=== PATIENT | male | born 1990 | race Caucasian/White ===

== ENCOUNTER 2016-07-31 19:54 | Emergency (ER) | payer OTHER ==
[2016-07-31 20:01] VITALS: BP 125/87; PULSE 120; TEMP 98.2; BMI 36.5
[2016-07-31] MEDS ORDERED: LIDOCAINE HCL 2% JELLY 10 ML CARTRIDGE ONE (20:25)
--- NOTE | 2016-07-31 20:54 | PDOC ---
[id number]: BUG IN EAR Time Seen by Provider: 07/31/16 20:21 History Source: Patient Exam Limitations: No Limitations - History of Present Illness Initial Comments: 07/31/16 20:54 25 yr male c/o insect in left ear. Pt attempted to remove with tweezers [employer]IST[employer] COMM[employer]ICATION Past History - Past Medical History Allergies/Adverse Reactions: Allergies Allergy/AdvReac Type Severity Reaction Status Date / Time Penicillins Allergy Verified 07/31/16 19:58 Home Medications: Ambulatory Orders Acetaminophen [Tylenol .Regular Strength -] 650 mg PO Q6H PRN #0 tablet Atorvastatin Ca [Lipitor] 10 mg PO HS #0 tablet 10/05/13 Clindamycin [Cleocin -] 300 mg PO TID #30 capsule 10/05/13 Lisinopril [Prinivil] 10 mg PO DAILY #0 tablet 10/05/13 Metformin HCl [Glucophage] 1,000 mg PO BID #0 tablet 10/05/13 Anemia: No Asthma: No Cancer: No Cardiac Disorders: No CVA: No COPD: No CHF: No Dementia: No Diabetes: Yes GI Disorders: No Disorders: No HTN: Yes Hypercholesterolemia: Yes Liver Disease: No Suicide Attempt (Hx): No Seizures: No Thyroid Disease: No - Surgical History Abdominal Surgery: No Appendectomy: No Cardiac Surgery: No Cholecystectomy: No Lung Surgery: No Neurologic Surgery: No Orthopedic Surgery: No - Psycho/Social/Smoking Cessation Hx Suicidal Ideation: No Smoking History: Never smoked Have you smoked in the past 12 months: No Hx Alcohol Use: No Drug/Substance Use Hx: No Substance Use Type: None Hx Substance Use Treatment: No *Physical Exam - Vital Signs Last Vital Signs Temp Pulse Resp BP Pulse Ox 98.2 F 120 H 20 125/87 96 07/31/16 19:58 07/31/16 19:58 07/31/16 19:58 07/31/16 19:58 07/31/16 19:58 - Physical Exam General Appearance: Yes: Nourished, Appropriately Dressed, Other (anxious) HEENT: positive: EOMI, LEONEL, Other (insect left ear ) Respiratory/Chest: positive: Lungs Clear, Normal Breath Sounds Cardiovascular: positive: Regular Rhythm, Regular Rate Extremity: positive: Normal Range of Motion Integumentary: positive: Normal Color, Dry, Warm Procedures - Additional Procedures Progress: 07/31/16 20:55 instilled 1%visocus lidocaine to left ear to kill insect attempted multiple times to remove insect with forceps, irrigated unsuccessfull Medical Decision Making - Medical Decision Making 07/31/16 20:55 cc: insect left ear will instill lidocaine to kill the insect and attempt to remove pt tolerated well after multiple attempts unable to remove insect pt will follow with ENT tomorrow to have insect removed, pt states he has no pain or does not feel insect moving agrees with plan to follow up tomorrow with ENT HR rechecked is 110, pt states he is nervous. 08/04/16 13:43 *DC/Admit/Observation/Transfer Diagnosis at time of Disposition: Foreign body in ear Qualifiers: Encounter type: initial encounter Laterality: left Qualified Code(s): T16.2XXA - Foreign body in left ear, initial encounter - Discharge Dispostion Disposition: HOME Condition at time of disposition: Fair - Referrals Referrals: Mich Childers [Primary Care Provider] - Jt Boswell MD [Staff Physician] - - Patient Instructions Additional Instructions: follow with ENT tomorrow do not stick anything in the ear take motrin for any pain or discomfort
== END 2016-07-31 21:00 | disposition home or self-care (01) ==
LOC: JERFT 19:54
PROC: 09C4XZZ Extirpation of Matter from Left External Auditory Canal, External Approach (ICD-10-PCS; principal; 2016-07-31)
DX: T16.2XXA Foreign body in left ear, initial encounter (principal)
CPT/HCPCS: 99281-25

== ENCOUNTER 2019-04-09 06:24 | Emergency (ER) | payer OTHER ==
[2019-04-09 06:31] VITALS: BMI 35.3
[2019-04-09] MEDS ORDERED: SODIUM CHLORIDE 0.9% 500 ML INFUS.BAG IV ONE ×2 (07:09→09:28)
[2019-04-09] MEDS ORDERED: ONDANSETRON 4 MG/2 ML VIAL IVPB ONE (07:10)
[2019-04-09] MEDS ORDERED: ACETAMINOPHEN 1000 MG/100 ML VIAL (NON FORMULARY) IVPB ONE (07:10)
--- NOTE | 2019-04-09 07:18 | PDOC ---
History of Present Illness - General Chief Complaint: Pain Stated Complaint: ABD PAIN Time Seen by Provider: 04/09/19 07:00 History Source: Patient Exam Limitations: No Limitations - History of Present Illness Initial Comments: 04/09/19 07:15 William Cruz is a 28yM w PMHx DM, HTN, HLD, spinal stenosis presenting w abdominal pain. Has epigastric, LLQ pain for the last 4 days. Associated vomiting, unable to keep anything down. One episode of diarrhea yesterday. Measured glucose 2d ago in 200s. Not on insulin. Denies alcohol, marijuana use. Denies fever, cough, SOB, chest pain, hematuria/pyuria, or constipation. 04/09/19 07:56 Past History - Past Medical History Allergies/Adverse Reactions: Allergies Allergy/AdvReac Type Severity Reaction Status Date / Time Penicillins Allergy Verified 04/09/19 06:29 Home Medications: Ambulatory Orders Lisinopril [Prinivil] 10 mg PO DAILY #0 tablet 10/05/13 Metformin HCl [Glucophage] 1,000 mg PO BID #0 tablet 10/05/13 Buspirone HCl [Buspar -] 10 mg PO BID PRN 06/24/18 Febuxostat [Uloric -] 40 mg PO DAILY 06/24/18 Glipizide Xl [Glucotrol Xl -] 2.5 mg PO DAILY 06/24/18 Nebivolol [Bystolic -] 10 mg PO DAILY 06/24/18 Sertraline HCl [Zoloft -] 25 mg PO DAILY 06/24/18 Insulin Glargine,Hum.rec.anlog [Basaglar Kwikpen U-100] 70 unit SQ HS 09/29/18 Acetaminophen [Pain Relief] 650 mg PO TID PRN #90 tablet.er 12/20/18 Cyclobenzaprine HCl [Flexeril -] 10 mg PO TID PRN #90 tablet 12/20/18 Ergocalciferol (Vitamin D2) [Vitamin D2] 50,000 unit PO Q7D 12/20/18 Linagliptin [Tradjenta] 5 mg PO DAILY 12/20/18 Anemia: No Asthma: No Cancer: No Cardiac Disorders: No CVA: No COPD: No CHF: No Dementia: No Diabetes: Yes (on meds) GI Disorders: No Disorders: Yes (proteinuria) HTN: Yes (on meds) Hypercholesterolemia: Yes Liver Disease: Yes (fatty liver) Seizures: Yes (as child - 'blanked out and shook' - not in years) Thyroid Disease: No - Surgical History Abdominal Surgery: No Appendectomy: No Cardiac Surgery: No Cholecystectomy: No Lung Surgery: No Neurologic Surgery: No Orthopedic Surgery: No - Psycho Social/Smoking Cessation Hx Smoking History: Never smoked Have you smoked in the past 12 months: No Hx Alcohol Use: No Drug/Substance Use Hx: No Substance Use Type: None Hx Substance Use Treatment: No Review of Systems - Review of Systems Constitutional: No: Chills, Fever HEENTM: No: Eye Pain, Nose Pain, Throat Pain, Mouth Pain Respiratory: No: Cough, Shortness of Breath Cardiac (ROS): No: Chest Pain, Edema, Palpitations, Syncope ABD/GI: Yes: Diarrhea, Nausea, Vomiting. No: Abdominal Distended, Constipated : No: Burning, Dysuria, Discharge, Frequency, Flank Pain, Hematuria Musculoskeletal: Yes: Back Pain (chronic low back). No: Joint Pain, Joint Swelling, Muscle Pain, Muscle Weakness Integumentary: No: Bruising, Dryness, Erythema Neurological: No: Headache, Numbness, Seizure, Tingling, Tremors Psychiatric: No: Anxiety, Depression, Stressors Endocrine: No: Excessive Sweating, Flushing, Intolerance to Cold, Intolerance to Heat Hematologic/Lymphatic: No: Anemia, Blood Clots *Physical Exam - Vital Signs Last Vital Signs Temp Pulse Resp BP Pulse Ox 98.2 F 107 H 20 142/92 96 04/09/19 06:04/09/19 06:04/09/19 06:04/09/19 06:04/09/19 06:27 - Physical Exam General Appearance: Yes: Nourished, Appropriately Dressed, Mild Distress HEENT: positive: EOMI, LEONEL, Normal Voice, Hearing Grossly Normal. negative: Scleral Icterus (R), Scleral Icterus (L), Nasal Congestion, Rhinorrhea Respiratory/Chest: positive: Lungs Clear, Normal Breath Sounds. negative: Chest Tender, Respiratory Distress, Crackles, Rales, Rhonchi, Stridor, Wheezing Cardiovascular: positive: Regular Rhythm, S1, S2, Tachycardia. negative: Edema , Murmur Gastrointestinal/Abdominal: positive: Normal Bowel Sounds, Tender (mildly tender epigastric, LLQ), Flat, Soft. negative: Guarding, Rebound, Mass Male Genitalia: positive: normal genitalia. negative: discharge, testicular tenderness, testicular mass, epididymus tender, hernia Musculoskeletal: negative: CVA Tenderness (R), CVA Tenderness (L) Extremity: positive: Delayed Capillary Refill. negative: Swelling Integumentary: positive: Dry Neurologic: positive: Fully Oriented, Alert, Normal Mood/Affect, Normal Response , Responsive. negative: Numbness, Confused, Disoriented ED Treatment Course - LABORATORY CBC & Chemistry Diagram: 04/09/19 07:45 04/09/19 07:45 Medical Decision Making - Medical Decision Making 04/09/19 07:16 CBC CMP lipase acetone sOsmo POCglucose UA Ucx VBG 2L NS zofran tylenol 07:31 - BG 278. 09:00 - BG 230 after 1L NS WBC 14.3, Hgb 17 - contraction alkalosis, CMP normal, trop neg UA trace ketones, glucose, no UTI CT AB shows no acute pathology, fatty liver William Cruz is a 28yM w PMHx DM, spinal stenosis presenting w abdominal pain and vomiting likely d/t gastroenteritis. No diverticulitis, acute pathology on CT AB. Not DKA w BG 278, repeat 230 w fluids. Pain/vomiting relieved w 2L NS, zofran, tylenol. Pt tolerating PO fluids. D/c home Discharge - Discharge Information Problems reviewed: Yes Clinical Impression/Diagnosis: Gastroenteritis Condition: Improved Disposition: HOME - Admission No - Follow up/Referral Referrals: Eveline Singh MD [Primary Care Provider] - - Patient Discharge Instructions Patient Printed Discharge Instructions: DI for Viral Gastroenteritis -- Adult Additional Instructions: You were seen for abdominal pain and vomiting. Your labs and imaging did not show anything concerning. You were given medication and fluids for your pain and vomiting. Drink lots of fluids. You can take tylenol or ibuprofen if you continue to have abdominal pain. Please follow up with your primary care doctor regarding this visit. Come back to the ED if you continue to vomit, worsening abdominal pain, or lose consciousness. - Post Discharge Activity
[2019-04-09] MEDS ORDERED: ACETAMINOPHEN INJECTION 100 ML IVPB ONE (07:30)
[2019-04-09] MEDS ORDERED: ONDANSETRON 4 MG/2 ML VIAL ONE (07:30)
[2019-04-09 08:12] LABS: VENOUS PH 7.43 (7.31-7.41); VENOUS PO2 60.2 mmHg (28-48)
[2019-04-09 08:35] LABS: BASO % 0.1 % (0-2.0); EOS % 1.3 % (0-4.5); HEMATOCRIT 49.7 % (35.4-49); LYMPH % 21.1 % (8-40); MCH 28.3 pg (25.7-33.7); MCHC 34.2 g/dl (32.0-35.9); MEAN CELL VOLUME 82.8 fl (80-96); MEAN PLT VOLUME 7.9 fl (7.5-11.1); MONO % 10.5 % (3.8-10.2); PLATELET COUNT 289 K/MM3 (134-434); RBC 6.01 M/mm3 (4.00-5.60); RDW 14.5 % (11.9-15.9); WHITE BLOOD COUNT 14.3 K/mm3 (4.0-10.0)
[2019-04-09 09:05] LABS: ALK PHOS 80 U/L (45-117); ANION GAP 10 MMOL/L (8-16); BILIRUBIN,TOTAL 1.2 mg/dL (0.2-1); CALCIUM 9.3 mg/dL (8.5-10.1); CHLORIDE 99 mmol/L (98-107); CO2 28 mmol/L (21-32); GLUCOSE,RANDOM 264 mg/dL (74-106); POTASSIUM 4.2 mmol/L (3.5-5.1); SGOT/AST 19 U/L (15-37); SGPT/ALT 34 U/L (13-61); SODIUM 137 mmol/L (136-145); TOT PROT 7.7 g/dl (6.4-8.2)
[2019-04-09 09:30] LABS: OSMOLALITY,SERUM 295 mosm/kg (278-305)
[2019-04-09 10:06] LABS: URINE APPEARANCE CLEAR; URINE BILIRUBIN NEGATIVE (NEGATIVE); URINE COLOR YELLOW; URINE GLUCOSE (UA) 2+ (NEGATIVE); URINE KETONE TRACE (NEGATIVE); URINE LEUK ESTERASE NEGATIVE (NEGATIVE); URINE NITRITE NEGATIVE (NEGATIVE); URINE PROTEIN 1+ (NEGATIVE)
--- NOTE | 2019-04-09 10:29 | PDOC ---
Attending Attestation - Resident Resident Name: Henry Omer - ED Attending Attestation I have performed the following: I have examined & evaluated the patient, The case was reviewed & discussed with the resident, I agree w/resident's findings & plan, Exceptions are as noted - HPI HPI: 04/09/19 10:25 28 yo male h/o htn hld dm obesity spinal stenosis here wtih c/o epigastric and lower abd pain. pt states pain started yesterday. has had several episodes of n/ v over night . one loose stool. no sick contacts. no fever, no travel. no recent abx. pt states pain is constant. no testicular pain. no mod factors. pain moderate. no prior abd surgery. - Physicial Exam PE: 04/09/19 10:27 awake alert lungs clear bilat heart rrrn omrg abd soft obese llq ttp. no rebound no guarding. ext wwp no edema. nuero alert oriented x 3. - Medical Decision Making 04/09/19 10:29 28 yo male n/v /d llq ttp on exam. differential renal colic, gastroenteritis, colitis, diveritculitis, dka. plan labs ua iv hydration antiemetics. ct a/p
[2019-04-09 10:45] LABS: ACETONE SERUM NEGATIVE (NEGATIVE)
[2019-04-09 10:53] VITALS: BP 105/66; PULSE 84; TEMP 97.6
[2019-04-09 15:36] LABS: EPI CELLS 0.5 /HPF (0-5/HPF); HYALINE CASTS 2.99 /lpf (0-8); URINE BACTERIA 4.6 /hpf (NEGATIVE); URINE RBC 1.7 /hpf (0-4); URINE WBC 0.6 /hpf (0-5)
== END 2019-04-09 10:53 | disposition home or self-care (01) ==
LOC: JER 06:24
PROC: 3E033NZ Introduction of Analgesics, Hypnotics, Sedatives into Peripheral Vein, Percutaneous Approach (ICD-10-PCS; principal; 2019-04-09)
PROC: 3E033GC Introduction of Other Therapeutic Substance into Peripheral Vein, Percutaneous Approach (ICD-10-PCS; 2019-04-09)
DX: K52.9 Noninfective gastroenteritis and colitis, unspecified (principal); I10 Essential (primary) hypertension; E11.9 Type 2 diabetes mellitus without complications; Z79.84 Long term (current) use of oral hypoglycemic drugs; E78.00 Pure hypercholesterolemia, unspecified; R80.9 Proteinuria, unspecified; K76.0 Fatty (change of) liver, not elsewhere classified; Z88.0 Allergy status to penicillin
CPT/HCPCS: 36415; 74177-TC; 80053; 81003; 82009; 82803; 82962; 83690; 83930; 84484; 85025; 87086; 96374; 96375; 99283-25; J0131

== ENCOUNTER 2019-07-16 02:13 | Emergency (ER) | payer OTHER ==
[2019-07-16 02:46] VITALS: BMI 35.6
[2019-07-16] MEDS ORDERED: ONDANSETRON 4 MG/2 ML VIAL IVPUSH ONE (03:41)
[2019-07-16] MEDS ORDERED: SODIUM CHLORIDE 1,000 ML IV STA (03:41)
[2019-07-16] MEDS ORDERED: ONDANSETRON 4 MG/2 ML VIAL ONE (04:07)
--- NOTE | 2019-07-16 04:18 | PDOC ---
History of Present Illness - General Chief Complaint: Nausea/Vomiting Stated Complaint: VOMITING BLOOD Time Seen by Provider: 07/16/19 03:29 History Source: Patient Exam Limitations: No Limitations - History of Present Illness Initial Comments: 07/16/19 04:09 Mr. Cruz is a 28 yo M w PMHx DM, HTN, HLD, spinal stenosis who presents to the ER with a complaint of nausea, vomiting Pt states that he was in his usual state of health (last meal was at noon) He went to work this evening and began having nausea and vomiting He vomited 5 times - non bilious. One time he vomited, he noted blood streaking No abdominal pain or tenderness No fevers or chills Currently pt feels better Pt states he has had "Stomach issues" for the past few months Was seen in the ER in Sept - fatty infiltration of the liver, no other pathology found Pt seen by PMD and sent for US on Jul 14 as an outpatient, demonstrated no gallstones, no GB wall thickening, no pericholecystic fluid, fatty infiltration and splenomegayly Denies recent travel Denies ill contacts Denies fever, cough, SOB, chest pain, hematuria/pyuria, or constipation. PMH: DM, HTN, HLD, spinal stenosis PSH: denies Meds: please see MAR ALL: PCN Social: Denies alcohol, marijuana use. ROS: GENERAL/CONSTITUTIONAL: No: fever, chills, weakness, loss of appetite. HEAD, EYES, EARS, NOSE AND THROAT: No: sore throat, throat swelling. CARDIOVASCULAR: No: chest pain, lightheadedness, palpitations, syncope RESPIRATORY: No: cough, shortness of breath, wheezing GASTROINTESTINAL: Yes: nausea, vomiting, No: diarrhea, abdominal pain. GENITOURINARY: No: dysuria, hematuria, frequency, urgency, flank pain. MUSCULOSKELETAL: No: back pain, neck pain, joint pain, muscle swelling or pain SKIN: No: lesions, pallor, rash or easy bruising. NEUROLOGIC: No: headache, vertigo, paresthesias, weakness ENDOCRINE: No: unexplained weight gain or loss HEMATOLOGIC/LYMPHATIC: No: anemia, easy bleeding, swelling nodes. PE: GENERAL: The patient is in no acute distress. HEAD: Normal with no signs of trauma. EYES: PERRLA, EOMI, sclera anicteric, conjunctiva clear. ENT: Ears normal, nares patent, oropharynx clear without exudates. Dry mucous membranes. NECK: Normal range of motion, supple LUNGS: Breath sounds equal, clear to auscultation bilaterally. No wheezes, and no crackles. HEART:Regular rate and rhythm, normal S1 and S2 without murmur, rub or gallop. ABDOMEN: Soft, nontender, No guarding, no rebound. EXTREMITIES: Normal range of motion, no edema. NEUROLOGICAL: Cranial nerves II through XII grossly intact. Normal speech. No focal neurological deficits. MUSCULOSKELETAL: Back non-tender to palpation, no CVA tenderness SKIN: Warm, Dry, normal turgor, no rashes or lesions noted. Past History - Past Medical History Allergies/Adverse Reactions: Allergies Allergy/AdvReac Type Severity Reaction Status Date / Time Penicillins Allergy Verified 04/09/19 06:29 Home Medications: Ambulatory Orders Lisinopril [Prinivil] 10 mg PO DAILY #0 tablet 10/05/13 Metformin HCl [Glucophage] 1,000 mg PO BID #0 tablet 10/05/13 Buspirone HCl [Buspar -] 10 mg PO BID PRN 06/24/18 Glipizide Xl [Glucotrol Xl -] 2.5 mg PO DAILY 06/24/18 Nebivolol [Bystolic -] 10 mg PO DAILY 06/24/18 Sertraline HCl [Zoloft -] 25 mg PO DAILY 06/24/18 Insulin Glargine,Hum.rec.anlog [Basaglar Kwikpen U-100] 70 unit SQ HS 09/29/18 Linagliptin [Tradjenta] 5 mg PO DAILY 12/20/18 Acetaminophen [Pain Relief] 650 mg PO TID PRN #90 tablet.er 06/27/19 Cyclobenzaprine HCl 10 mg PO BID PRN #60 tablet 06/27/19 Ergocalciferol (Vitamin D2) [Vitamin D2] 50,000 unit PO Q7D #4 capsule 06/27/19 Anemia: No Asthma: No Cancer: No Cardiac Disorders: No CVA: No COPD: No CHF: No Dementia: No Diabetes: Yes (on meds) GI Disorders: No Disorders: Yes (proteinuria) HTN: Yes (on meds) Hypercholesterolemia: Yes Liver Disease: Yes (fatty liver) Seizures: Yes (as child - 'blanked out and shook' - not in years) Thyroid Disease: No - Surgical History Abdominal Surgery: No Appendectomy: No Cardiac Surgery: No Cholecystectomy: No Lung Surgery: No Neurologic Surgery: No Orthopedic Surgery: No - Psycho Social/Smoking Cessation Hx Smoking History: Never smoked Have you smoked in the past 12 months: No Hx Alcohol Use: No Drug/Substance Use Hx: No Substance Use Type: None Hx Substance Use Treatment: No *Physical Exam - Vital Signs Last Vital Signs Temp Pulse Resp BP Pulse Ox 92 H 18 136/78 99 07/16/19 02:44 07/16/19 02:44 07/16/19 02:44 07/16/19 02:44 ED Treatment Course - LABORATORY CBC & Chemistry Diagram: 07/16/19 04:15 07/16/19 04:15 Medical Decision Making - Medical Decision Making 07/16/19 04:17 28 yo M presenting to the ER with a complaint of nausea and vomiting no abd pain DD: Gastritis, early gastroenteritis, gastroparesis, biliary colic? Will do: Labs IVF Zofran Re Assess Pt had CT in Sept and 2 days ago (no lower abd tenderness) 07/16/19 05:39 Laboratory Tests 07/16/19 07/16/19 07/16/19 04:15 04:15 04:15 WBC 9.4 Hgb 15.6 Hct 46.6 Plt Count 247 Neutrophils % 57.8 Lymphocytes % 29.8 D BUN 11.5 Creatinine 0.9 Total Amylase 43 Lipase 07/16/19 04:15 WBC Hgb Hct Plt Count Neutrophils % Lymphocytes % BUN Creatinine Total Amylase Lipase 182 Pt states he feels better Will discharge to home with Zofran prn Clinical impression: gastritis, initial presentation Discharge - Discharge Information Problems reviewed: Yes Clinical Impression/Diagnosis: Gastritis Qualifiers: Gastritis type: unspecified gastritis Chronicity: acute Gastritis bleeding: without bleeding Qualified Code(s): K29.00 - Acute gastritis without bleeding Vomiting Qualifiers: Vomiting type: unspecified Vomiting Intractability: non-intractable Nausea presence: with nausea Qualified Code(s): R11.2 - Nausea with vomiting, unspecified Condition: Stable Disposition: HOME - Admission No - Follow up/Referral Referrals: Boris Mireles MD [Primary Care Provider] - - Patient Discharge Instructions Patient Printed Discharge Instructions: DI for Vomiting -- Adult, DI for Nausea -- Adult Additional Instructions: Mr. Cruz Thank you for coming in to the ER tonletty Please review all your studies Return to the emergency department immediately with ANY new, persistent or worsening symptoms. Continue any medications as previously prescribed by your physician. I have ordered you zofan for vomiting You should follow up with your primary doctor as soon as possible regarding today's emergency department visit. Please make sure your doctor reviews the results of your emergency evaluation. Thank you for coming to the Emergency Department today for your care. It was a pleasure to see you today. Please note that your evaluation is INCOMPLETE until you follow-up with your doctor. - Post Discharge Activity Work/Back to School Note: Back to Work
[2019-07-16 04:25] LABS: BASO % 0.6 % (0-2.0); EOS % 5.5 % (0-4.5); HEMATOCRIT 46.6 % (35.4-49); HEMOGLOBIN 15.6 GM/dL (11.7-16.9); LYMPH % 29.8 % (8-40); MCH 28.6 pg (25.7-33.7); MCHC 33.5 g/dl (32.0-35.9); MEAN CELL VOLUME 85.5 fl (80-96); MEAN PLT VOLUME 7.2 fl (7.5-11.1); MONO % 6.3 % (3.8-10.2); NEUT % 57.8 % (42.8-82.8); PLATELET COUNT 247 K/MM3 (134-434); RBC 5.45 M/mm3 (4.00-5.60); RDW 13.8 % (11.9-15.9); WHITE BLOOD COUNT 9.4 K/mm3 (4.0-10.0)
[2019-07-16 05:11] LABS: ALBUMIN 3.7 g/dl (3.4-5.0); BILIRUBIN,TOTAL 0.5 mg/dL (0.2-1); BLOOD UREA NITROGEN 11.5 mg/dL (7-18); CALCIUM 9.1 mg/dL (8.5-10.1); CREATININE 0.9 mg/dL (0.55-1.3); POTASSIUM 4.1 mmol/L (3.5-5.1); TOT PROT 7.5 g/dl (6.4-8.2)
[2019-07-16 05:51] VITALS: BP 127/77; PULSE 93; TEMP 98.3
== END 2019-07-16 05:57 | disposition home or self-care (01) ==
LOC: JER 02:13
PROC: 3E033GC Introduction of Other Therapeutic Substance into Peripheral Vein, Percutaneous Approach (ICD-10-PCS; principal; 2019-07-16)
DX: K29.00 Acute gastritis without bleeding (principal); I10 Essential (primary) hypertension; E78.00 Pure hypercholesterolemia, unspecified; E11.9 Type 2 diabetes mellitus without complications; Z79.4 Long term (current) use of insulin; K76.0 Fatty (change of) liver, not elsewhere classified; Z88.0 Allergy status to penicillin
CPT/HCPCS: 36415; 80053; 82150; 83690; 85025; 96374; 99282-25; J7030

== ENCOUNTER 2021-09-15 10:17 | Emergency (ER) | payer OTHER ==
[2021-09-15 10:22] VITALS: TEMP 98; BMI 34.9
[2021-09-15] MEDS ORDERED: methylPREDNISolone NA SUCC 125 MG/2 ML VIAL IVPUSH ONE (10:51)
[2021-09-15] MEDS ORDERED: methylPREDNISolone NA SUCC 125 MG/2 ML VIAL ONE (10:57)
[2021-09-15 11:21] LABS: BASO % 0.4 % (0-2.0); EOS % 1.4 % (0-4.5); HEMATOCRIT 39.5 % (35.4-49); HEMOGLOBIN 13.7 GM/dL (11.7-16.9); LYMPH % 15.3 % (8-40); MCH 28.9 pg (25.7-33.7); MCHC 34.6 g/dl (32.0-35.9); MEAN CELL VOLUME 83.5 fl (80-96); MEAN PLT VOLUME 6.9 fl (7.5-11.1); MONO % 12.7 % (3.8-10.2); NEUT % 70.2 % (42.8-82.8); PLATELET COUNT 250 10^3/uL (134-434); RBC 4.73 M/mm3 (4.00-5.60); RDW 13.8 % (11.9-15.9)
[2021-09-15 11:29] LABS: ALBUMIN 3.6 g/dl (3.4-5.0); CALCIUM 9.2 mg/dL (8.5-10.1)
[2021-09-15 11:30] LABS: BLOOD UREA NITROGEN 15.3 mg/dL (7-18); INR 1.1 (0.83-1.09); PROTHROMBIN TIME (PATIENT) 12.7 SEC (9.7-13.0)
[2021-09-15 11:33] LABS: ACTIVATED PTT 30.8 SECONDS (25.2-36.5)
[2021-09-15 11:34] LABS: BILIRUBIN,TOTAL 0.8 mg/dL (0.2-1); TOT PROT 7.8 g/dl (6.4-8.2)
[2021-09-15] MEDS ORDERED: CLINDAMYCIN HCL 150 MG CAPSULE (FP) PO ONE (13:03)
[2021-09-15] MEDS ORDERED: CLINDAMYCIN HCL 150 MG CAPSULE (FP) ONE (13:12)
[2021-09-15] MEDS ORDERED: CLINDAMYCIN 600MG PREMIX IVPB 600 MG/50 ML BAG IVPB ONE ×2 (13:15→13:23)
[2021-09-15 13:22] VITALS: BP 120/77; PULSE 90
== END 2021-09-15 13:40 | disposition short-term general hospital (02) ==
LOC: JER 10:17
PROC: 3E033GC Introduction of Other Therapeutic Substance into Peripheral Vein, Percutaneous Approach (ICD-10-PCS; principal; 2021-09-15)
DX: L02.01 Cutaneous abscess of face (principal); L03.211 Cellulitis of face
CPT/HCPCS: 36415; 70487-TC; 70491-TC; 71045-TC-FY; 80053; 83735; 85025; 85610; 85730; 86850; 86900; 86901; 93005; 93010; 96365; 96375; 99285-25; Q9967

== ENCOUNTER 2023-08-22 19:05 | Inpatient (IN) | payer OTHER ==
[2023-08-22] MEDS ORDERED: FAMOTIDINE 20 MG/50 ML IVPB 20 MG/50 ML MG IVPB ONE (20:28)
[2023-08-22] MEDS ORDERED: MAG HYDROX/AL HYDROX/SIMETH 30 ML UNIT-DOSE CUP ONE (20:28)
[2023-08-22] MEDS ORDERED: METOCLOPRAMIDE HCL INJECTION 10 MG/2 ML VIAL ONE (20:28)
[2023-08-22] MEDS ORDERED: ACETAMINOPHEN INJECTION 100 ML IVPB ONE (20:28)
[2023-08-22 20:41] LABS: BASO % 0.3 % (0-2.0); HEMATOCRIT 47.2 % (35.4-49); LYMPH % 21.4 % (8-40); MCH 28.9 pg (25.7-33.7); MCHC 33.8 g/dl (32.0-35.9); MEAN CELL VOLUME 85.3 fl (80-96); MONO % 6.4 % (3.8-10.2); NEUT % 70.9 % (42.8-82.8); PLATELET COUNT 372 10^3/uL (134-434); RBC 5.53 M/mm3 (4.00-5.60); RDW 14.5 % (11.9-15.9); WHITE BLOOD COUNT 12.2 K/mm3 (4.0-10.0)
[2023-08-22] MEDS: LACTATED RINGERS SOLUTION 1000 ML INFUS.BAG IV ONE ×2 (20:55→22:49)
[2023-08-22] MEDS: FAMOTIDINE 20 MG/50 ML IVPB 20 MG/50 ML MG IVPB ONE (20:56)
[2023-08-22] MEDS: ACETAMINOPHEN 1000 MG/100 ML BAG IVPB ONE (20:56)
[2023-08-22] MEDS: METOCLOPRAMIDE HCL INJECTION 10 MG/2 ML VIAL IVPUSH ONE (20:56)
[2023-08-22] MEDS: MAG HYDROX/AL HYDROX/SIMETH 30 ML UNIT-DOSE CUP PO ONE (20:56)
[2023-08-22 21:05] LABS: CHLORIDE 98 mmol/L (98-107); SODIUM 133 mmol/L (136-145)
[2023-08-22 21:07] LABS: ALBUMIN 4.5 g/dl (3.4-5.0); CALCIUM 9.8 mg/dL (8.5-10.1)
[2023-08-22 21:08] LABS: BLOOD UREA NITROGEN 28.3 mg/dL (7-18); CO2 25 mmol/L (21-32); GLUCOSE,RANDOM 263 mg/dL (74-106); MAGNESIUM 1.5 mg/dL (1.8-2.4)
[2023-08-22 21:10] LABS: CREATININE 1.8 mg/dL (0.55-1.3)
[2023-08-22 21:11] LABS: SGOT/AST 67 U/L (15-37); SGPT/ALT 63 U/L (13-61)
[2023-08-22 21:12] LABS: BILIRUBIN,TOTAL 0.8 mg/dL (0.2-1); TOT PROT 8.9 g/dl (6.4-8.2)
[2023-08-22 21:14] LABS: ALK PHOS 68 U/L (45-117)
[2023-08-22 21:38] LABS: ANION GAP 11 mmol/L (4-13); POTASSIUM 6.7 mmol/L (3.5-5.1)
[2023-08-22] MEDS: metroNIDAZOLE 250 MG TABLET PO ONE (21:59)
[2023-08-22] MEDS ORDERED: MAGNESIUM SULFATE IN WATER 2 GM/50 ML IVPB IVPB ONE (22:32)
[2023-08-22] MEDS: MAGNESIUM SULFATE IN WATER 2 GM/50 ML IVPB IVPB ONE (22:45)
[2023-08-22 23:07] LABS: CHLORIDE 100 mmol/L (98-107); SODIUM 134 mmol/L (136-145)
[2023-08-22 23:09] LABS: CALCIUM 9.2 mg/dL (8.5-10.1)
[2023-08-22 23:10] LABS: BLOOD UREA NITROGEN 26.4 mg/dL (7-18); CO2 26 mmol/L (21-32); GLUCOSE,RANDOM 260 mg/dL (74-106)
[2023-08-22 23:13] LABS: ANION GAP 8 mmol/L (4-13); POTASSIUM 6.1 mmol/L (3.5-5.1)
[2023-08-22] MEDS: SODIUM CHLORIDE 1,000 ML IV STA (23:28)
[2023-08-22] MEDS: SODIUM CHLORIDE 1,000 ML IV SCH (23:29)
[2023-08-22] MEDS ORDERED: INSULIN REGULAR HUMAN 100 UNITS/ML *VIAL IVPUSH ONE (23:58)
[2023-08-23] MEDS: INSULIN REGULAR HUMAN 100 UNITS/ML *VIAL IVPUSH ONE (00:40)
[2023-08-23] MEDS: SODIUM ZIRCONIUM CYCLOSILICATE (LOKELMA) 5 GM PACKET PO SCH (00:40)
[2023-08-23] MEDS ORDERED: SODIUM ZIRCONIUM CYCLOSILICATE (LOKELMA) 5 GM PACKET ONE (00:41)
[2023-08-23 00:52] LABS: BASO % 0.4 % (0-2.0); EOS % 0.3 % (0-4.5); HEMATOCRIT 41.7 % (35.4-49); LYMPH % 18.6 % (8-40); MCH 28.8 pg (25.7-33.7); MCHC 33.6 g/dl (32.0-35.9); MEAN CELL VOLUME 85.8 fl (80-96); MEAN PLT VOLUME 6.8 fl (7.5-11.1); MONO % 5.1 % (3.8-10.2); NEUT % 75.6 % (42.8-82.8); PLATELET COUNT 307 10^3/uL (134-434); RBC 4.86 M/mm3 (4.00-5.60); RDW 14.3 % (11.9-15.9); WHITE BLOOD COUNT 12.5 K/mm3 (4.0-10.0)
[2023-08-23 01:13] LABS: POTASSIUM 5.3 mmol/L (3.5-5.1)
[2023-08-23 01:15] LABS: ALBUMIN 3.8 g/dl (3.4-5.0); BLOOD UREA NITROGEN 27.5 mg/dL (7-18); CALCIUM 9.5 mg/dL (8.5-10.1); MAGNESIUM 2.3 mg/dL (1.8-2.4)
[2023-08-23 01:18] LABS: CREATININE 1.8 mg/dL (0.55-1.3)
[2023-08-23 01:19] LABS: PHOSPHOROUS 3.1 mg/dL (2.5-4.9)
[2023-08-23 01:20] LABS: BILIRUBIN,TOTAL 0.6 mg/dL (0.2-1); TOT PROT 7.5 g/dl (6.4-8.2)
[2023-08-23 03:32] VITALS: BMI 37.8
[2023-08-23] MEDS: HEPARIN NA (PORCINE) 5,000 UNITS/ML 1ML VIAL SQ SCH (05:20)
[2023-08-23] MEDS: INSULIN ASPART SLIDING SCALE (NOVOLOG) 1 VIAL SQ SCH (06:38)
[2023-08-23 09:11] LABS: BASO % 0.4 % (0-2.0); EOS % 1.4 % (0-4.5); HEMATOCRIT 39.5 % (35.4-49); HEMOGLOBIN 13.3 GM/dL (11.7-16.9); LYMPH % 45.8 % (8-40); MCH 28.9 pg (25.7-33.7); MCHC 33.6 g/dl (32.0-35.9); MEAN CELL VOLUME 86.1 fl (80-96); MONO % 8.4 % (3.8-10.2); PLATELET COUNT 267 10^3/uL (134-434); RBC 4.59 M/mm3 (4.00-5.60); RDW 14.2 % (11.9-15.9); WHITE BLOOD COUNT 9.2 K/mm3 (4.0-10.0)
[2023-08-23 09:32] LABS: POTASSIUM 4.5 mmol/L (3.5-5.1)
[2023-08-23 09:35] LABS: ALBUMIN 3.8 g/dl (3.4-5.0); BLOOD UREA NITROGEN 24.8 mg/dL (7-18)
[2023-08-23 09:38] LABS: CREATININE 1.4 mg/dL (0.55-1.3)
[2023-08-23 09:40] LABS: BILIRUBIN,TOTAL 0.7 mg/dL (0.2-1); TOT PROT 7.1 g/dl (6.4-8.2)
[2023-08-23] MEDS: SERTRALINE HCL 25 MG TABLET (FP) PO SCH (10:10)
[2023-08-23] MEDS: busPIRone HCL 10 MG TABLET (FP) PO PRN (10:10)
[2023-08-23] MEDS: PANTOPRAZOLE SODIUM 40 MG VIAL IVPUSH SCH (10:10)
[2023-08-23] MEDS: NEBIVOLOL 10 MG TABLET (FP) PO SCH (10:10)
[2023-08-23] MEDS ORDERED: CYCLOBENZAPRINE HCL 10 MG TABLET (FP) PO PRN (10:25)
[2023-08-23 20:32] VITALS: RESP 18
[2023-08-23] MEDS: INSULIN (LEVEMIR) 100 UNITS/ML UNITS SQ SCH (22:10)
[2023-08-24 08:57] VITALS: BP 137/82; PULSE 93; TEMP 97.8
[2023-08-24 12:39] LABS: HEMATOCRIT 40.4 % (35.4-49); HEMOGLOBIN 13.9 GM/dL (11.7-16.9); MCH 29.2 pg (25.7-33.7); MCHC 34.4 g/dl (32.0-35.9); MEAN CELL VOLUME 84.9 fl (80-96); MEAN PLT VOLUME 6.8 fl (7.5-11.1); PLATELET COUNT 265 10^3/uL (134-434); RBC 4.76 M/mm3 (4.00-5.60); RDW 14.2 % (11.9-15.9); WHITE BLOOD COUNT 6.5 K/mm3 (4.0-10.0)
[2023-08-24 13:01] LABS: POTASSIUM 4.8 mmol/L (3.5-5.1)
[2023-08-24 13:02] LABS: CALCIUM 9.1 mg/dL (8.5-10.1)
[2023-08-24 13:03] LABS: BLOOD UREA NITROGEN 15.9 mg/dL (7-18)
[2023-08-24 13:06] LABS: CREATININE 1.2 mg/dL (0.55-1.3)
== END 2023-08-24 13:46 | disposition home or self-care (01) | DRG 469 ==
LOC: JER 19:05 → JERBED 21:28 → J6S 08-23 01:53
PROVIDERS: ADMIT Internal Medicine; ATTEND Internal Medicine
DX: N17.9 Acute kidney failure, unspecified (principal); E11.43 Type 2 diabetes mellitus with diabetic autonomic (poly)neuropathy; E11.65 Type 2 diabetes mellitus with hyperglycemia; E87.5 Hyperkalemia; E83.42 Hypomagnesemia; Z68.37 Body mass index [BMI] 37.0-37.9, adult; I10 Essential (primary) hypertension; E66.9 Obesity, unspecified; R11.2 Nausea with vomiting, unspecified; T36.8X5A Adverse effect of other systemic antibiotics, initial encounter; X58.XXXA Exposure to other specified factors, initial encounter
CPT/HCPCS: 0241U-QW; 36415; 71046-TC-FY; 74176-TC; 76775-TC; 80048; 80053; 82962; 83036; 83605; 83735; 84100; 84484; 85025; 85027; 86705; 86803; 87340; 87517; 93005; 93010; 99285-25; J0131; J1644

== ENCOUNTER 2024-02-15 08:29 | Emergency (ER) | payer OTHER ==
[2024-02-15 08:55] VITALS: BP 146/95; PULSE 97; RESP 18; TEMP 97.7; BMI 33.5
[2024-02-15] MEDS ORDERED: DIPHTH,PERTUSS(ACELL),TET 0.5 ML DISP.SYRIN IM ONE ×2 (10:50→11:02)
[2024-02-15] MEDS: DIPHTH,PERTUSS(ACELL),TET 0.5 ML DISP.SYRIN IM ONE (11:04)
== END 2024-02-15 11:11 | disposition home or self-care (01) ==
LOC: JERFT 08:29
PROC: 3E0234Z Introduction of Serum, Toxoid and Vaccine into Muscle, Percutaneous Approach (ICD-10-PCS; principal; 2024-02-15)
DX: S91.341A Puncture wound with foreign body, right foot, initial encounter (principal); W25.XXXA Contact with sharp glass, initial encounter; Z23 Encounter for immunization
CPT/HCPCS: 73630-TC-RT-FY; 90471; 90715; 99283-25